=== PATIENT | male | born 1970 | race Caucasian/White ===

== ENCOUNTER → 2016-09-29 | Outpatient (CLI) | payer BC ==
--- NOTE | 2016-09-29 16:49 | REP ---
ULTRASOUND LEFT POPLITEAL FOSSA: Real-time sonographic evaluation of the left popliteal fossa performed. There is complex fluid in this region measuring 7.8 x 3.2 x 5.2 cm. IMPRESSION: Complex fluid collection left popliteal fossa of indeterminate etiology. It measures 7.8 x 3.2 x 5.2 cm. Signed by Vu Reyez MD 09/30/2016 09:42 A
== END ==
LOC: M RAD 15:33
PROVIDERS: ATTEND Physician Assistant
DX: M25.562 Pain in left knee (principal)

== ENCOUNTER → 2016-09-29 | Outpatient (CLI) | payer BC ==
--- NOTE | 2016-09-29 18:19 | REP ---
LEFT KNEE SERIES: Six views of the left knee are performed. There is no acute fracture or dislocation. There is mild joint space narrowing. There appears to be a ligamentous calcification along the medial femoral condyle. Oval subcutaneous soft-tissue calcification is seen far posteriorly. There does appear to be a moderate joint effusion in the suprapatellar bursa. IMPRESSION: Mild degenerative changes. Moderate joint effusion. Signed by Vu Reyez MD 09/30/2016 09:41 A
== END ==
LOC: M ADAMS 16:29
PROVIDERS: ATTEND Physician Assistant
DX: M25.562 Pain in left knee (principal)

== ENCOUNTER → 2016-09-30 | Outpatient (CLI) | payer BC ==
[2016-09-30 20:09] LABS: RBC ADVIA BF 0.03; RBC CALC. BF 30000 (< 10mm3 cells/uL); WBC ADVIA BF 59.1; WBC CALC. BF 59100 cells/uL (0-20)
[2016-09-30 20:14] LABS: BF DIFF IF INDICATED? YES (NO); SYNOVIAL FLUID COLOR YELLOW (YELLOW)
[2016-09-30 21:14] LABS: CC BF DIFF EXAM UNSPUN; CRYSTALS, BODY FLUID URIC ACID (NONE SEEN)
[2016-09-30 21:51] LABS: HCT SOURCE LFT KNEE
[2016-10-02 00:08] LABS: Lyme Disease IgG/IgM Antibodie <0.91 ISR (0.00-0.90); Lyme Disease IgM Ab Quantitati <0.80 index (0.00-0.79)
== END ==
LOC: M LAB 12:13
PROVIDERS: ATTEND Orthopaedic Surgery
DX: M25.462 Effusion, left knee (principal); M17.12 Unilateral primary osteoarthritis, left knee

== ENCOUNTER → 2016-10-25 | Outpatient (REF) | payer BC ==
[2016-10-25 16:49] LABS: MEAN CORPUSCULAR HEMOGLOBIN 34.9 pg (27.0-33.0); MEAN CORPUSCULAR HGB CONC 35.2 g/dl (32.0-36.5); MEAN CORPUSCULAR VOLUME 99.3 fl (80.0-96.0); RED CELL DISTRIBUTION WIDTH 13.9 % (11.5-14.5); WHITE BLOOD COUNT 5.3 K/mm3 (4.0-10.0)
[2016-10-25 16:50] LABS: ALBUMIN 4.1 GM/DL (3.2-5.2); ALBUMIN/GLOBULIN RATIO 1.05 (1.00-1.93); ALKALINE PHOSPHATASE 103 U/L (45-117); ALT/SGPT 36 U/L (12-78); ANION GAP 12 MEQ/L (8-16); AST/SGOT 50 U/L (15-37); BILIRUBIN,TOTAL 0.7 MG/DL (0.2-1.0); BLOOD UREA NITROGEN 7 MG/DL (7-18); CALCIUM LEVEL 9.1 MG/DL (8.5-10.1); CARBON DIOXIDE LEVEL 29 MEQ/L (21-32); CHLORIDE LEVEL 99 MEQ/L (98-107); CHOLESTEROL LEVEL 337 MG/DL (<200); CREATININE FOR GFR 1.07 MG/DL (0.70-1.30); FREE T4 0.65 NG/DL (0.76-1.46); GLOMERULAR FILTRATION RATE > 60.0 (>60); GLUCOSE, FASTING 105 MG/DL (70-105); POTASSIUM SERUM 3.9 MEQ/L (3.5-5.1); SODIUM LEVEL 140 MEQ/L (136-145); TRIGLYCERIDES LEVEL 901 MG/DL (<150)
== END ==
LOC: M SFHCADAM 10:40
PROVIDERS: ATTEND Physician Assistant
DX: E03.9 Hypothyroidism, unspecified (principal); E78.5 Hyperlipidemia, unspecified; I10 Essential (primary) hypertension

== ENCOUNTER 2016-11-23 09:58 | Emergency (ER) | payer BC ==
[~2016-11-23] VITALS: Ht 180.3 cm; Wt 111.1 kg
[2016-11-23] MEDS ORDERED: ALBU17IN2 INH (10:11)
[2016-11-23] MEDS ORDERED: ALLO100T PO (10:11)
[2016-11-23] MEDS ORDERED: SYNT150T PO (10:11)
[2016-11-23] MEDS ORDERED: AMLO5TAB2 PO (10:11)
[2016-11-23] MEDS ORDERED: NORCO, ANEXSIA 5/325MG TABLET (HYDROcodone/ACETAMINOPHEN) PO ONE (10:30)
[2016-11-23] MEDS ORDERED: KETOROLAC 60 MG/2 ML VIAL (J1885) IM ONE (10:30)
[2016-11-23] MEDS ORDERED: ONDANSETRON 4 MG ORAL DISINTEGRATING TAB (S0181) PO ONE (10:30)
[2016-11-23 10:32] LABS: BASO # 0.1 K/mm3 (0.0-0.2); BASO % 0.9 % (0.0-1.0); EOS # 0.4 K/mm3 (0.0-0.50); EOS % 3.8 % (0.0-3.0); LARGE UNSTAINED CELL # 0.1 K/mm3 (0.0-0.4); LARGE UNSTAINED CELL % 1.4 % (0.0-4.0); LYMPH # 1.5 K/mm3 (1.5-4.5); LYMPH % 15.4 % (24.0-44.0); MEAN CORPUSCULAR HEMOGLOBIN 33.6 pg (27.0-33.0); MEAN CORPUSCULAR HGB CONC 33.8 g/dl (32.0-36.5); MEAN CORPUSCULAR VOLUME 99.2 fl (80.0-96.0); MONO # 0.4 K/mm3 (0.0-0.8); MONO % 4.5 % (0.0-5.0); NEUTROPHILS # 7.1 K/mm3 (1.8-7.7); NEUTROPHILS % 74.1 % (36.0-66.0); PLATELET COUNT, AUTOMATED 299 k/mm3 (150-450); RED CELL DISTRIBUTION WIDTH 13.7 % (11.5-14.5); WHITE BLOOD COUNT 9.6 K/mm3 (4.0-10.0)
[2016-11-23 10:50] LABS: ANION GAP 7 MEQ/L (8-16); BLOOD UREA NITROGEN 7 MG/DL (7-18); CARBON DIOXIDE LEVEL 29 MEQ/L (21-32); CHLORIDE LEVEL 102 MEQ/L (98-107); CREATININE FOR GFR 0.72 MG/DL (0.70-1.30); GLOMERULAR FILTRATION RATE > 60.0 (>60); GLUCOSE, FASTING 119 MG/DL (70-105); POTASSIUM SERUM 3.7 MEQ/L (3.5-5.1); SODIUM LEVEL 138 MEQ/L (136-145); URIC ACID 5.7 MG/DL (3.5-7.2)
[2016-11-23 11:00] LABS: ERYTHROCYTE SEDIMENTATION RATE 8 mm/hr (0-15)
[2016-11-23 11:15] VITALS: BP 138/78
--- NOTE | 2016-11-23 11:15 | REP ---
Clinical: Posterior knee pain . Technique: Reyez scale and color Doppler evaluation using linear high frequency transducer. Findings: Ultrasound examination of the left lower extremity deep venous structures from the common femoral vein to the popliteal vein demonstrates normal compressibility flow and wave patterns in response to respiration and augmentation. There is no evidence for deep venous thrombosis. A complex Villanueva's cyst with heterogeneous fluid, septations and calcifications in the popliteal fossa measures 8.7 x 2.8 x 4.9 cm. Impression: No evidence for deep venous thrombosis. Large complex Villanueva's cyst in the popliteal fossa. Signed by Dylan Lujan MD 11/23/2016 11:06 A
--- NOTE | 2016-11-23 11:23 | REP ---
Clinical: Nontraumatic pain. Technique: AP, lateral, bilateral oblique and sunrise views of the left knee. Findings: Moderate tricompartmental and possibly old post traumatic degenerative changes are appreciated including old avulsion fracture and subsequent calcification along the medial collateral ligament adjacent to the femoral condyle. Increased sclerosis to the tibial plateau is noted with subtle spurring to the spines as well as cortical irregularity to the femoral condyles, spurring along the patellar margin with associated posterior sclerosis and decreased patellofemoral joint space. There is evidence for anterior and medial soft tissue swelling as well as moderate suprapatellar effusion suggested. Impression: 1. Moderate tricompartmental degenerative changes possibly to some extent related to old trauma. 2. Swelling and suprapatellar effusion. Signed by Dylan Lujan MD 11/23/2016 11:15 A
--- NOTE | 2016-11-23 11:25 | REP ---
Clinical: Pain . Technique: AP, lateral, bilateral oblique views right foot. Findings: Mild degenerative changes primarily involving the first metatarsophalangeal joint with subtle sclerosis and possible subchondral cystic changes to the head of the first metatarsal bone and subchondral sclerosis and at the base of the proximal phalanx. Remainder examination appears relatively normal for age and without further degenerative changes noted. There is no evidence for acute fracture or dislocation. Surrounding soft tissues are unremarkable. No subcutaneous emphysema or radiodense foreign body. Impression: Mild degenerative changes suggested at the first metatarsophalangeal joint. Signed by Dylan Lujan MD 11/23/2016 11:17 A
[2016-11-23] MEDS ORDERED: NORCOTAB PO (11:36)
[2016-11-23] MEDS ORDERED: INDO25CA PO (11:36)
== END 2016-11-23 11:42 | disposition home or self-care (01) ==
LOC: M ED 10:31
DX: M79.671 Pain in right foot (principal); M71.22 Synovial cyst of popliteal space [Baker], left knee; I10 Essential (primary) hypertension; J45.909 Unspecified asthma, uncomplicated; M10.9 Gout, unspecified; E07.9 Disorder of thyroid, unspecified; Z79.899 Other long term (current) drug therapy; Z88.0 Allergy status to penicillin
CPT/HCPCS: 73564; 73630; 80048; 84550; 85025; 85652; 86140; 93971; 96372; 99282; J1885

== ENCOUNTER → 2016-12-29 | Outpatient (REF) | payer BC ==
[~2016-12-29] MED LIST: ALBU17IN2 INH; ALLO100T PO; AMLO5TAB2 PO; INDO25CA PO; NORCOTAB PO; SYNT150T PO
[2016-12-29 13:23] LABS: FREE T4 1.53 NG/DL (0.76-1.46); URIC ACID 7.3 MG/DL (3.5-7.2)
== END ==
LOC: M SFHCADAM 10:03
PROVIDERS: ATTEND Physician Assistant
DX: E03.9 Hypothyroidism, unspecified (principal); M10.9 Gout, unspecified

== ENCOUNTER → 2017-04-04 | Outpatient (REF) | payer BC ==
[2017-04-04 17:22] LABS: ALBUMIN 4.1 GM/DL (3.2-5.2); ALBUMIN/GLOBULIN RATIO 1.08 (1.00-1.93); ALKALINE PHOSPHATASE 78 U/L (45-117); ALT/SGPT 72 U/L (12-78); ANION GAP 9 MEQ/L (8-16); AST/SGOT 74 U/L (15-37); BILIRUBIN,TOTAL 0.5 MG/DL (0.2-1.0); BLOOD UREA NITROGEN 7 MG/DL (7-18); CALCIUM LEVEL 8.7 MG/DL (8.5-10.1); CARBON DIOXIDE LEVEL 28 MEQ/L (21-32); CHLORIDE LEVEL 103 MEQ/L (98-107); CREATININE FOR GFR 0.81 MG/DL (0.70-1.30); FREE T4 0.82 NG/DL (0.76-1.46); GLOMERULAR FILTRATION RATE > 60.0 (>60); GLUCOSE, FASTING 90 MG/DL (70-105); POTASSIUM SERUM 3.7 MEQ/L (3.5-5.1); SODIUM LEVEL 140 MEQ/L (136-145); TOTAL PROTEIN 7.9 GM/DL (6.4-8.2); URIC ACID 5.3 MG/DL (3.5-7.2)
[2017-04-06 10:16] LABS: VITAMIN B12 LEVEL 562 PG/ML
[2017-04-06 10:17] LABS: FOLATE 10.2 NG/ML
== END ==
LOC: M SFHCADAM 10:40
PROVIDERS: ATTEND Physician Assistant
DX: M10.9 Gout, unspecified (principal); I10 Essential (primary) hypertension; F10.10 Alcohol abuse, uncomplicated

== ENCOUNTER → 2017-07-25 | Outpatient (REF) | payer BC ==
[2017-07-25 16:59] LABS: FREE T4 0.69 NG/DL (0.76-1.46)
[2017-07-27 10:33] LABS: HEPATITIS C VIRUS ABY INDEX < 0.0 INDEX (<0.8)
[2017-07-27 10:33] LABS: HIV 1&2 SCREEN CENTAUR NEGATIVE (NEGATIVE)
== END ==
LOC: M SFHCADAM 10:19
DX: E03.9 Hypothyroidism, unspecified (principal); Z11.59 Encounter for screening for other viral diseases; Z11.4 Encounter for screening for human immunodeficiency virus [HIV]

== ENCOUNTER → 2017-09-03 | Outpatient (CLI) | payer OTHER | LOC: M WHC 09:45 | DX: N50.89 Other specified disorders of the male genital organs (principal) | CPT/HCPCS: 76870 ==

== ENCOUNTER → 2017-11-09 | Outpatient (REF) | payer OTHER ==
[2017-11-09 19:18] LABS: HEMATOCRIT 42.7 % (42.0-52.0); HEMOGLOBIN 14.7 g/dl (13.5-17.5); MEAN CORPUSCULAR HGB CONC 34.4 g/dl (32.0-36.5); MEAN CORPUSCULAR VOLUME 95.7 fl (80.0-96.0); PLATELET COUNT, AUTOMATED 273 10^3/uL (150-450); RED BLOOD COUNT 4.46 10^6/uL (4.30-6.10); RED CELL DISTRIBUTION WIDTH 12.1 % (11.5-14.5); WHITE BLOOD COUNT 9.1 10^3/uL (4.0-10.0)
[2017-11-09 19:36] LABS: FOLATE 7.6 NG/ML; VITAMIN B12 LEVEL 521 PG/ML
[2017-11-09 19:37] LABS: ALBUMIN/GLOBULIN RATIO 1.11 (1.00-1.93); ALKALINE PHOSPHATASE 74 U/L (45-117); ALT/SGPT 58 U/L (12-78); ANION GAP 10 MEQ/L (8-16); AST/SGOT 40 U/L (7-37); BILIRUBIN,TOTAL 0.4 MG/DL (0.2-1.0); BLOOD UREA NITROGEN 15 MG/DL (7-18); CALCIUM LEVEL 8.7 MG/DL (8.5-10.1); CARBON DIOXIDE LEVEL 24 MEQ/L (21-32); CHLORIDE LEVEL 106 MEQ/L (98-107); CREATININE FOR GFR 0.89 MG/DL (0.70-1.30); FREE T4 0.95 NG/DL (0.76-1.46); GLOMERULAR FILTRATION RATE > 60.0 (>60); GLUCOSE, FASTING 96 MG/DL (70-100); POTASSIUM SERUM 4.4 MEQ/L (3.5-5.1); SODIUM LEVEL 140 MEQ/L (136-145); TOTAL PROTEIN 7.6 GM/DL (6.4-8.2)
[2017-11-10 11:17] LABS: TOTAL 25(OH) VITAMIN D 10.8 NG/ML (30.0-100.0)
== END ==
LOC: M SFHCADAM 13:08
DX: E03.9 Hypothyroidism, unspecified (principal); F10.10 Alcohol abuse, uncomplicated; I10 Essential (primary) hypertension; F33.1 Major depressive disorder, recurrent, moderate
CPT/HCPCS: 82746

== ENCOUNTER → 2017-11-12 | Outpatient (CLI) | payer OTHER | LOC: M ADAMS 13:59 | DX: M16.11 Unilateral primary osteoarthritis, right hip (principal) | CPT/HCPCS: 73502 ==

== ENCOUNTER → 2019-02-04 | Outpatient (CLI) | payer OTHER ==
[~2019-02-04] MED LIST changes: -AMLO5TAB2 PO; +AMLO5TAB6 PO; +HYDR-3715 PO; +INDO-16 PO; -INDO25CA PO; -NORCOTAB PO
== END ==
LOC: M OUTALCOH 08:28
PROVIDERS: ATTEND Psychiatry & Neurology Psychiatry
DX: F12.10 Cannabis abuse, uncomplicated (principal)

== ENCOUNTER 2019-02-24 10:00 | Outpatient (RCR) | payer OTHER | END 2019-02-26 | LOC: M OUTALCOH 10:00 | PROVIDERS: ATTEND Psychiatry & Neurology Psychiatry | DX: Z03.89 Encounter for observation for other suspected diseases and conditions ruled out (principal) ==

== ENCOUNTER → 2019-03-21 | Outpatient (CLI) | payer OTHER | LOC: M LAB 08:39 | PROVIDERS: ATTEND Psychiatry & Neurology Addiction Medicine | DX: F10.929 Alcohol use, unspecified with intoxication, unspecified (principal) ==

== ENCOUNTER → 2019-03-28 | Outpatient (RCR) | payer OTHER | LOC: M OUTALCOH 03-03 14:17 | PROVIDERS: ATTEND Psychiatry & Neurology Psychiatry | DX: F10.10 Alcohol abuse, uncomplicated (principal); F12.10 Cannabis abuse, uncomplicated ==

== ENCOUNTER 2019-04-22 09:30 | Outpatient (RCR) | payer OTHER | END 2019-04-28 | LOC: M OUTALCOH 09:30 | PROVIDERS: ATTEND Psychiatry & Neurology Psychiatry | DX: F10.10 Alcohol abuse, uncomplicated (principal); F12.10 Cannabis abuse, uncomplicated ==

== ENCOUNTER 2019-05-17 08:00 | Outpatient (RCR) | payer OTHER | END 2019-05-28 | LOC: M OUTALCOH 08:00 | PROVIDERS: ATTEND Psychiatry & Neurology Psychiatry | DX: F10.20 Alcohol dependence, uncomplicated (principal); F12.10 Cannabis abuse, uncomplicated ==

== ENCOUNTER → 2019-12-02 | Outpatient (REF) | payer OTHER ==
[2019-12-02 17:30] LABS: HEMATOCRIT 43.6 % (42.0-52.0); HEMOGLOBIN 15.5 g/dl (13.5-17.5); MEAN CORPUSCULAR HGB CONC 35.6 g/dl (32.0-36.5); MEAN CORPUSCULAR VOLUME 87.2 fl (80.0-96.0); PLATELET COUNT, AUTOMATED 184 10^3/uL (150-450); WHITE BLOOD COUNT 5.2 10^3/uL (4.0-10.0)
[2019-12-02 18:48] LABS: ALBUMIN 4.4 GM/DL (3.2-5.2); ALT/SGPT 26 U/L (12-78); BILIRUBIN,TOTAL 0.8 MG/DL (0.2-1.0); BLOOD UREA NITROGEN 14 MG/DL (7-18); CALCIUM LEVEL 9.6 MG/DL (8.5-10.1); CARBON DIOXIDE LEVEL 30 MEQ/L (21-32); CHLORIDE LEVEL 98 MEQ/L (98-107); CHOLESTEROL LEVEL 338 MG/DL (<200); CHOLESTEROL RISK RATIO 8.243 (<5); CREATININE FOR GFR 1.11 MG/DL (0.70-1.30); FOLATE > 24.0 NG/ML; FREE T4 0.94 NG/DL (0.76-1.46); GLOMERULAR FILTRATION RATE > 60.0 (>60); GLUCOSE, FASTING 93 MG/DL (70-100); HDL CHOLESTEROL 41 MG/DL (>40); NON-HDL-C 297 MG/DL; POTASSIUM SERUM 4.3 MEQ/L (3.5-5.1); SODIUM LEVEL 136 MEQ/L (136-145); TOTAL 25(OH) VITAMIN D 36.8 NG/ML (30.0-100.0); TOTAL PROTEIN 8.1 GM/DL (6.4-8.2); TRIGLYCERIDES LEVEL 1172 MG/DL (<150); VITAMIN B12 LEVEL 1065 PG/ML
[2019-12-02 18:53] LABS: MALB URINE SIEMENS 49.2 MG/L; MAU/CREAT RATIO 16.6 MCG/MG (0.0-30.0)
== END ==
LOC: M SFHCADAM 11:31
PROVIDERS: ATTEND Physician Assistant
DX: E03.9 Hypothyroidism, unspecified (principal); E78.5 Hyperlipidemia, unspecified; I10 Essential (primary) hypertension; F10.10 Alcohol abuse, uncomplicated; M16.11 Unilateral primary osteoarthritis, right hip; J45.909 Unspecified asthma, uncomplicated

== ENCOUNTER → 2020-01-02 | Outpatient (CLI) | payer OTHER ==
--- NOTE | 2020-01-03 08:19 | REP ---
SCROTAL ULTRASOUND: Real-time sonographic evaluation of the scrotum and contents performed and compared to a prior study of 09/03/2017. The testicles appear to be normal in size and echotexture, right testicle measuring 4.4 x 2.4 x 3.3 cm and left testicle 5.5 x 2.4 x 2.1 cm. There is no testicular mass or torsion. Blood flow is seen in each testicle with duplex Doppler evaluation. There is a small right-sided hydrocele. This appears similar to the prior study. There is a very large left hydrocele. This appears to have increased somewhat since the prior study. IMPRESSION: No testicular mass or torsion. No definite change. Small right hydrocele. Very large left hydrocele appears to have increased since 09/03/2017. Electronically Signed by Vu Reyez MD 01/03/2020 07:30 P
== END ==
LOC: M RAD 14:27
PROVIDERS: ATTEND Nurse Practitioner Family
DX: N43.3 Hydrocele, unspecified (principal)

== ENCOUNTER → 2020-02-04 | Outpatient (CLI) | payer OTHER ==
[~2020-02-04] MED LIST changes: +AMLO1TAB24 PO; -AMLO5TAB6 PO
--- NOTE | 2020-04-03 08:00 | REP ---
CHEST X-RAY: 2-VIEWS HISTORY: History of hydrocele. Preop. FINDINGS: 2-views of the chest are performed. I see no acute infiltrate. The heart is normal in size. The mediastinal silhouette is unremarkable. There is slight curvature of the thoracic spine toward the right and straightening of the normal thoracic kyphosis. IMPRESSION: No acute pulmonary disease. MTDD
== END ==
LOC: M LAB 13:30
PROVIDERS: ATTEND Nurse Practitioner Family
DX: Z01.818 Encounter for other preprocedural examination (principal); N43.3 Hydrocele, unspecified

== ENCOUNTER 2020-02-10 09:45 | Day surgery (SDC) | payer OTHER ==
[~2020-02-10 09:45] MED LIST changes: +LIDOCAINE 2% 100MG/5ML SDV (FOR ANES.) ONE; +MIDAZOLAM INJ 2MG/2ML VIAL (J2250 PER 1MG) ONE; +ONDANSETRON 4MG/2ML VIAL ONE; +dexameTHASONE 4 MG/ML 1ML VIAL (J1100 PER 1MG) ONE; +fentaNYL 100 MCG/2 ML INJECTION (J3010) ONE; +propofoL 200 MG/20 ML VIAL ONE
[2020-02-10] MEDS ORDERED: CIPROFLOXACIN/D5W 400 MG/200 ML BAG (J0744) ONE (10:05)
[2020-02-10] MEDS ORDERED: BUPIVACAINE HCL 0.25% 30ML VIAL ONE (10:38)
[2020-02-10] MEDS ORDERED: LIDOCAINE 1% SDV 30ML VIAL ONE (10:38)
[2020-02-10] MEDS ORDERED: fentaNYL 100 MCG/2 ML INJECTION (J3010) ONE (10:55)
[2020-02-10] MEDS ORDERED: BACITRACIN OINTMENT 30GM TUBE ONE (11:04)
[2020-02-10] MEDS ORDERED: ACETAMINOPHEN 1000MG 100ML IV BTL (OFIRMEV) (J0131 PER 10MG) ONE (12:34)
[2020-02-10] MEDS ORDERED: oxyCODONE 5MG TAB ONE ×2 (12:34→13:09)
[2020-02-10] MEDS ORDERED: ONDANSETRON 4MG/2ML VIAL ONE (12:50)
--- NOTE | 2020-04-05 11:36 | RO ---
DATE OF PROCEDURE: February 10, 2020 PRE-PROCEDURE DIAGNOSIS: Left hydrocele. POST-PROCEDURE DIAGNOSIS: Left hydrocele. PROCEDURE: Left hydrocelectomy. SURGEON: Castillo Yuan MD REAL ESTATE LEGAL ASSISTANT: None. ANESTHESIA: General. OPERATIVE INDICATIONS: This is 49-year-old male who has a large symptomatic left hydrocele. He was brought to the operating room today for treatment. DESCRIPTION OF PROCEDURE: The patient was brought to the operating room and general anesthesia was induced. Prophylactic antibiotics were infused. He was placed in the supine position and prepped and draped in the usual sterile fashion. At this point, an approximately 6-7 cm transverse incision was made over the left hemiscrotum. We then dissected down through the scrotal wall layers using Bovie electrocautery. The testicle was then delivered outside of the left hemiscrotum inside the tunica vaginalis. At this point, the tunica vaginalis was punctured and approximately 1 liter of yellow serous fluid was drained from the left hydrocele sac. The tunica vaginalis was completely excised. I then oversewed the edges of the tunica vaginalis using a running 3-0 Vicryl suture. After this was done, I examined the testicle and the testicle appeared to be normal-appearing. We then checked for any areas of bleeding in the left hemiscrotum and any bleeding was controlled using electrocautery. Once satisfied with hemostasis, the testicle was delivered back inside the left hemiscrotum in its normal anatomic position. After that, the dartos muscle was closed with a running 2-0 Vicryl suture. After that, the skin was closed with interrupted 2-0 chromic suture. Once that was done, local anesthetic was applied, followed by dressings. This marked the conclusion of the procedure. The patient was then awakened from anesthesia and transferred to the recovery room in stable condition. ESTIMATED BLOOD LOSS: 10 mL. COMPLICATIONS: None. SPECIMENS: Left hydrocele sac. PLAN: The patient will follow up in the Urology Clinic for a postoperative visit in a few weeks. KRISTI
== END 2020-02-10 14:21 | disposition home or self-care (01) ==
LOC: M SDC 09:45
PROVIDERS: ATTEND Urology
DX: N43.3 Hydrocele, unspecified (principal); I10 Essential (primary) hypertension; E78.1 Pure hyperglyceridemia; M10.9 Gout, unspecified; F32.9 Major depressive disorder, single episode, unspecified; E03.9 Hypothyroidism, unspecified; J45.909 Unspecified asthma, uncomplicated; G47.33 Obstructive sleep apnea (adult) (pediatric); Z79.899 Other long term (current) drug therapy; F10.10 Alcohol abuse, uncomplicated
CPT/HCPCS: 55040; 88302; J0131; J0744; J1100; J2250; J2405; J3010

== ENCOUNTER → 2020-03-19 | Outpatient (REF) | payer OTHER ==
[~2020-03-19] MED LIST changes: -LIDOCAINE 2% 100MG/5ML SDV (FOR ANES.) ONE; -MIDAZOLAM INJ 2MG/2ML VIAL (J2250 PER 1MG) ONE; -ONDANSETRON 4MG/2ML VIAL ONE; -dexameTHASONE 4 MG/ML 1ML VIAL (J1100 PER 1MG) ONE; -fentaNYL 100 MCG/2 ML INJECTION (J3010) ONE; -propofoL 200 MG/20 ML VIAL ONE
[2020-03-19 14:25] LABS: APPEARANCE, URINE CLEAR (CLEAR); BACTERIA, URINE AUTO NEGATIVE (NEGATIVE); BILIRUBIN, URINE AUTO NEGATIVE (NEGATIVE); BLOOD, URINE BLOOD NEGATIVE (NEGATIVE); COLOR, URINE YELLOW (YELLOW); GLUCOSE, URINE (UA) AUTO NEGATIVE (NEGATIVE); KETONE, URINE AUTO NEGATIVE (NEGATIVE); LEUKOCYTE ESTERASE, URINE AUTO NEGATIVE (NEGATIVE); MUCUS, URINE SMALL (NEGATIVE); NITRITE, URINE AUTO NEGATIVE (NEGATIVE); PROTEIN, URINE AUTO NEGATIVE (NEGATIVE); RBC, URINE AUTO 0 /HPF (0-3); SQUAMOUS EPITHELIAL CELL UR AU 0 /HPF (0-6); UROBILINOGEN, URINE AUTO 0.2 mg/dL (0.0-2.0); WBC, URINE AUTO 0 /HPF (0-3)
== END ==
LOC: M SMT 12:53
PROVIDERS: ATTEND Nurse Practitioner Family
DX: N50.819 Testicular pain, unspecified (principal)

== ENCOUNTER → 2020-04-30 | Outpatient (CLI) | payer OTHER ==
--- NOTE | 2020-05-02 10:15 | SLEEPHOME ---
DATE: 04/30/2020 ORDERED BY: Vicenta Mcclelland NP Diagnostic home sleep testing was performed due to concern for the obstructive sleep apnea syndrome. For testing, a nocturnal T3 respiratory monitoring device was used. Continuous record was made of pulse, oxygen saturation, air flow, chest and abdominal strain, and body position. Nine hours and 33 minutes of data were reviewed. There were 5 hours and 58 minutes marked as time in bed. During the interval marked time in bed, there were 268 respiratory events identified of 10 seconds in duration or greater for a respiratory event index of 44.9. The events were primarily obstructive. Baseline pulse rate was 75. Pulse rate ranged 31 to 194. Baseline saturation was 98%. Saturations fell to 75%. Testing was performed in both the supine and nonsupine positions. IMPRESSION: Abnormal home sleep testing with repetitive respiratory events and oxygen desaturations to 75% with a respiratory event index of 44.9 is consistent with the obstructive sleep apnea syndrome. RECOMMENDATION: The patient should be encouraged to undergo a formal sleep evaluation. [facility]
== END ==
LOC: M SLEEP HO 11:35
PROVIDERS: ATTEND Nurse Practitioner Family
DX: G47.33 Obstructive sleep apnea (adult) (pediatric) (principal)

== ENCOUNTER → 2020-05-17 | Outpatient (REF) | payer OTHER ==
[2020-05-17 14:03] LABS: ALBUMIN 4.1 GM/DL (3.2-5.2); ALT/SGPT 31 U/L (12-78); BILIRUBIN,TOTAL 0.5 MG/DL (0.2-1.0); BLOOD UREA NITROGEN 16 MG/DL (7-18); CALCIUM LEVEL 9.2 MG/DL (8.5-10.1); CARBON DIOXIDE LEVEL 30 MEQ/L (21-32); CHLORIDE LEVEL 100 MEQ/L (98-107); CHOLESTEROL LEVEL 317 MG/DL (<200); CREATININE FOR GFR 1.08 MG/DL (0.70-1.30); FREE T4 0.22 NG/DL (0.76-1.46); GLOMERULAR FILTRATION RATE > 60.0 (>60); GLUCOSE, FASTING 85 MG/DL (70-100); HDL CHOLESTEROL 50 MG/DL (>40); NON-HDL-C 267 MG/DL; POTASSIUM SERUM 4.6 MEQ/L (3.5-5.1); SODIUM LEVEL 137 MEQ/L (136-145); TOTAL PROTEIN 7.9 GM/DL (6.4-8.2); TRIGLYCERIDES LEVEL 1176 MG/DL (<150)
== END ==
LOC: M SFHCADAM 09:00
PROVIDERS: ATTEND Physician Assistant
DX: E78.2 Mixed hyperlipidemia (principal); E03.9 Hypothyroidism, unspecified

== ENCOUNTER → 2020-06-05 | Outpatient (CLI) | payer SELFPAY | LOC: M LABSMTC 14:13 | PROVIDERS: ATTEND Pediatrics | DX: Z11.59 Encounter for screening for other viral diseases (principal) ==

== ENCOUNTER → 2020-07-09 | Outpatient (REF) | payer OTHER ==
[2020-07-09 13:48] LABS: CHOLESTEROL LEVEL 240 MG/DL (<200); FREE T4 1.29 NG/DL (0.76-1.46); HDL CHOLESTEROL 60 MG/DL (>40); NON-HDL-C 180 MG/DL; TRIGLYCERIDES LEVEL 507 MG/DL (<150)
== END ==
LOC: M SFHCADAM 09:38
PROVIDERS: ATTEND Physician Assistant
DX: E03.9 Hypothyroidism, unspecified (principal); E78.2 Mixed hyperlipidemia

== ENCOUNTER → 2020-10-08 | Outpatient (REF) | payer OTHER ==
[2020-10-08 14:10] LABS: BASO # 0.1 10^3/uL (0.0-0.2); EOS # 0.5 10^3/uL (0.0-0.5); HEMATOCRIT 43.9 % (42.0-52.0); HEMOGLOBIN 14.6 g/dl (13.5-17.5); LYMPH # 2.4 10^3/uL (1.5-5.0); MEAN CORPUSCULAR HEMOGLOBIN 30.9 pg (27.0-33.0); MEAN CORPUSCULAR HGB CONC 33.3 g/dl (32.0-36.5); MEAN CORPUSCULAR VOLUME 92.8 fl (80.0-96.0); MONO # 0.7 10^3/uL (0.0-0.8); MONO % 7.8 % (2.0-8.0); NEUTROPHILS # 5.1 10^3/uL (1.5-8.5); NEUTROPHILS % 57.5 % (36.0-66.0); PLATELET COUNT, AUTOMATED 301 10^3/uL (150-450); RED BLOOD COUNT 4.73 10^6/uL (4.30-6.10); WHITE BLOOD COUNT 8.9 10^3/uL (4.0-10.0)
[2020-10-08 14:41] LABS: ALBUMIN 4.2 GM/DL (3.2-5.2); PERCENT SATURATION 25.1 % (19.7-50.0)
== END ==
LOC: M LABDRWAD 12:48
PROVIDERS: ATTEND Orthopaedic Surgery
DX: Z01.818 Encounter for other preprocedural examination (principal); M25.559 Pain in unspecified hip; M16.11 Unilateral primary osteoarthritis, right hip

== ENCOUNTER → 2020-10-26 | Outpatient (REF) | payer OTHER ==
[2020-10-26 13:43] LABS: INR 1.05
[2020-10-26 13:44] LABS: PARTIAL THROMBOPLASTIN TIME 33.5 SECONDS (24.2-38.5)
[2020-10-26 14:11] LABS: ALBUMIN 4.2 GM/DL (3.2-5.2); ALT/SGPT 77 U/L (12-78); BILIRUBIN,TOTAL 0.6 MG/DL (0.2-1.0); BLOOD UREA NITROGEN 15 MG/DL (7-18); CALCIUM LEVEL 9.4 MG/DL (8.5-10.1); CARBON DIOXIDE LEVEL 27 MEQ/L (21-32); CHLORIDE LEVEL 102 MEQ/L (98-107); GLOMERULAR FILTRATION RATE > 60.0 (>56); GLUCOSE, FASTING 115 MG/DL (70-100); POTASSIUM SERUM 4.2 MEQ/L (3.5-5.1); SODIUM LEVEL 137 MEQ/L (136-145)
== END ==
LOC: M SFHCADAM 11:05
PROVIDERS: ATTEND Physician Assistant
DX: E78.2 Mixed hyperlipidemia (principal); E78.5 Hyperlipidemia, unspecified; F10.10 Alcohol abuse, uncomplicated; F10.11 Alcohol abuse, in remission

== ENCOUNTER → 2020-12-17 | Outpatient (REF) | payer OTHER ==
[~2020-12-17] MED LIST changes: +ALBU8.5H INH; +ATOR40TA75 PO; +ERGO500029 PO; +FLUT1INH3 INH; +LOSA25TA14 PO; +MELO15TA28 PO; +OMEG1CAP85 PO; +VITMTA PO; +ZYLO300T6 PO
[2020-12-17 13:23] LABS: CHOLESTEROL RISK RATIO 3.44 (<5); FREE T4 1.27 NG/DL (0.76-1.46); THYROID STIMULATING HORMONE 0.303 uIU/ML (0.358-3.740)
== END ==
LOC: M SFHCADAM 09:27
PROVIDERS: ATTEND Physician Assistant
DX: E78.2 Mixed hyperlipidemia (principal); E78.5 Hyperlipidemia, unspecified; F10.10 Alcohol abuse, uncomplicated; E03.9 Hypothyroidism, unspecified; Z12.5 Encounter for screening for malignant neoplasm of prostate

== ENCOUNTER → 2021-01-10 | Outpatient (CLI) | payer OTHER ==
--- NOTE | 2021-01-10 08:39 | REP ---
INDICATION: ELEVATED LIVER ENZYMES COMPARISON: 02/01/2013 TECHNIQUE: Real time jovel scale ultrasound examination using curved array transducer. FINDINGS: Liver is hyperechoic and consistent with fatty infiltration. No focal hepatic lesions are identified. Pancreas is relatively normal in appearance. The gallbladder is normal and without gallstones, wall thickening, or pericholecystic fluid. No biliary ductal dilatation is appreciated and the common bile duct measures 3.5 mm diameter. Right kidney is normal in reniform shape without hydronephrosis and measures 12.8 x 5.4 x 4.8 cm. No ascites in the visualized right upper quadrant. IMPRESSION: Hepatosteatosis. <Electronically signed by Dylan Lujan > 01/10/21 0800
== END ==
LOC: M RAD 07:50
PROVIDERS: ATTEND Physician Assistant
DX: R74.01 Elevation of levels of liver transaminase levels (principal)

== ENCOUNTER → 2021-01-12 | Outpatient (CLI) | payer OTHER | LOC: M LABSMTC 09:05 | PROVIDERS: ATTEND Anesthesiology | DX: Z20.828 Contact with and (suspected) exposure to other viral communicable diseases (principal); Z11.59 Encounter for screening for other viral diseases ==

== ENCOUNTER 2021-01-17 09:25 | Day surgery (SDC) | payer OTHER ==
[~2021-01-17] VITALS: Ht 177.8 cm; Wt 111.5 kg
[2021-01-17] MEDS ORDERED: NS 1,000 ML IV ONE (10:25)
[2021-01-17] MEDS ORDERED: LIDOCAINE 2% 100MG/5ML SDV (FOR ANES.) As Ordered ONE (10:42)
[2021-01-17] MEDS ORDERED: propofoL 200 MG/20 ML VIAL As Ordered ONE ×2 (10:42→11:06)
[2021-01-17] MEDS ORDERED: fentaNYL 100 MCG/2 ML INJECTION (J3010) As Ordered ONE (11:03)
--- NOTE | 2021-01-17 11:18 | ROOR ---
Patient Name: Jn Almazan Procedure Date: 01/17/2021 10:55 AM Date of : 1970 Age: 50 Room: [facility] [place] Gender: Male Note Status: Finalized Procedure: Colonoscopy Indications: Screening for colorectal malignant neoplasm Providers: Yoav Wolff MD Referring MD: Mauricio Brizuela MD Requesting Provider: Medicines: Monitored Anesthesia Care Complications: No immediate complications. Procedure: Pre-Anesthesia Assessment: - The heart rate, respiratory rate, oxygen saturations, blood pressure, adequacy of pulmonary ventilation, and response to care were monitored throughout the procedure. The Colonoscope was introduced through the anus and advanced to the terminal ileum, with identification of the appendiceal orifice and IC valve. The colonoscopy was performed without difficulty. The patient tolerated the procedure well. The quality of the bowel preparation was adequate. Findings: The perianal and digital rectal examinations were normal. Two sessile polyps were found in the sigmoid colon. The polyps were 4 to 5 mm in size. These polyps were removed with a cold snare. Resection and retrieval were complete. A few medium-mouthed diverticula were found in the sigmoid colon. Internal hemorrhoids were found during retroflexion. The hemorrhoids were medium-sized. The exam was otherwise without abnormality on direct and retroflexion views. Impression: - Two 4 to 5 mm polyps in the sigmoid colon, removed with a cold snare. Resected and retrieved. - Mild diverticulosis in the sigmoid colon. - Moderate Internal hemorrhoids. - The examination was otherwise normal on direct and retroflexion views. Recommendation: - Repeat colonoscopy in 5 years for surveillance. Procedure Code(s): --- Professional --- 73137, Colonoscopy, flexible; with removal of tumor(s), polyp(s), or other lesion(s) by snare technique Diagnosis Code(s): --- Professional --- Z12.11, Encounter for screening for malignant neoplasm of colon K63.5, Polyp of colon K64.8, Other hemorrhoids K57.30, Diverticulosis of large intestine without perforation or abscess without bleeding CPT copyright 2019 [employer]. All rights reserved. The codes documented in this report are preliminary and upon vibration technician review may be revised to meet current compliance requirements. Yoav Wolff MD Yoav Wolff MD 01/17/2021 11:18:25 AM Electronically signed by Yoav Wolff MD Number of Addenda: 0 Note Initiated On: 01/17/2021 10:55 AM Estimated Blood Loss: Estimated blood loss: none.
[2021-01-17 11:51] VITALS: BP 135/77
== END 2021-01-17 11:53 | disposition home or self-care (01) ==
LOC: M OPP 09:25
PROVIDERS: ATTEND Internal Medicine Gastroenterology
DX: Z12.11 Encounter for screening for malignant neoplasm of colon (principal); Z80.0 Family history of malignant neoplasm of digestive organs; K63.5 Polyp of colon; K64.8 Other hemorrhoids; K57.30 Diverticulosis of large intestine without perforation or abscess without bleeding; G47.30 Sleep apnea, unspecified; Z79.899 Other long term (current) drug therapy; Z88.0 Allergy status to penicillin; Z91.018 Allergy to other foods; Z87.891 Personal history of nicotine dependence
CPT/HCPCS: 45385; 88305; J3010

== ENCOUNTER → 2021-07-24 | Outpatient (REF) | payer OTHER ==
[~2021-07-24] MED LIST changes: +LOSA25TA13 PO; -LOSA25TA14 PO
[2021-07-24 15:06] LABS: ALBUMIN 4.2 GM/DL (3.2-5.2); BILIRUBIN,TOTAL 2.3 MG/DL (0.2-1.0); CALCIUM LEVEL 9.3 MG/DL (8.5-10.1); CREATININE FOR GFR 1.37 MG/DL (0.70-1.30); FREE T4 0.65 NG/DL (0.76-1.46); GLOMERULAR FILTRATION RATE 58.3 (>56); POTASSIUM SERUM 3.6 MEQ/L (3.5-5.1); THYROID STIMULATING HORMONE 35.3 uIU/ML (0.358-3.740)
== END ==
LOC: M SFHCADAM 10:01
PROVIDERS: ATTEND Physician Assistant
DX: R74.8 Abnormal levels of other serum enzymes (principal); E03.9 Hypothyroidism, unspecified

== ENCOUNTER → 2021-09-02 | Outpatient (REF) | payer OTHER ==
[2021-09-02 12:58] LABS: HEMATOCRIT 45.2 % (42.0-52.0); HEMOGLOBIN 15.2 g/dl (13.5-17.5); MEAN CORPUSCULAR HEMOGLOBIN 32.1 pg (27.0-33.0); MEAN CORPUSCULAR HGB CONC 33.6 g/dl (32.0-36.5); MEAN CORPUSCULAR VOLUME 95.4 fl (80.0-96.0); PLATELET COUNT, AUTOMATED 289 10^3/uL (150-450); RED BLOOD COUNT 4.74 10^6/uL (4.30-6.10); WHITE BLOOD COUNT 8.8 10^3/uL (4.0-10.0)
[2021-09-02 13:24] LABS: ALBUMIN 3.9 GM/DL (3.2-5.2); ALT/SGPT 62 U/L (12-78); BILIRUBIN,TOTAL 0.6 MG/DL (0.2-1.0); BLOOD UREA NITROGEN 14 MG/DL (7-18); CALCIUM LEVEL 9.6 MG/DL (8.5-10.1); CARBON DIOXIDE LEVEL 29 MEQ/L (21-32); CHLORIDE LEVEL 105 MEQ/L (98-107); CHOLESTEROL LEVEL 220 MG/DL (<200); CREATININE FOR GFR 1.03 MG/DL (0.70-1.30); FREE T4 1.16 NG/DL (0.76-1.46); GLOMERULAR FILTRATION RATE > 60.0 (>56); GLUCOSE, FASTING 107 MG/DL (70-100); HDL CHOLESTEROL 55 MG/DL (>40); LDL CHOLESTEROL 87 MG/DL (<100); NON-HDL-C 165 MG/DL; POTASSIUM SERUM 4.7 MEQ/L (3.5-5.1); SODIUM LEVEL 139 MEQ/L (136-145); TOTAL PROTEIN 7.7 GM/DL (6.4-8.2); TRIGLYCERIDES LEVEL 389 MG/DL (<150)
== END ==
LOC: M SFHCADAM 08:44
PROVIDERS: ATTEND Physician Assistant
DX: E78.5 Hyperlipidemia, unspecified (principal); F10.10 Alcohol abuse, uncomplicated; E03.9 Hypothyroidism, unspecified

== ENCOUNTER → 2023-09-18 | Outpatient (CLI) | payer OTHER ==
[~2023-09-18] MED LIST changes: +BENA25CA4 PO; +EPIP0.3I2 IM; +PEPC1TAB5 PO; +PRED20TA PO
== END ==
LOC: M OUTALCOH 07:25
PROVIDERS: ATTEND Psychiatry & Neurology Psychiatry
DX: Z03.89 Encounter for observation for other suspected diseases and conditions ruled out (principal)

== ENCOUNTER 2023-09-24 10:58 | Outpatient (RCR) | payer OTHER ==
[~2023-09-24 10:58] MED LIST changes: -BENA25CA4 PO; -EPIP0.3I2 IM; -PEPC1TAB5 PO; -PRED20TA PO
== END 2023-09-27 ==
LOC: M OUTALCOH 10:58
PROVIDERS: ATTEND Psychiatry & Neurology Psychiatry
DX: F10.20 Alcohol dependence, uncomplicated (principal); F12.10 Cannabis abuse, uncomplicated

== ENCOUNTER → 2023-09-25 | Outpatient (REF) | payer OTHER ==
[2023-09-25 12:51] LABS: HEMATOCRIT 46.4 % (42.0-52.0); HEMOGLOBIN 14.6 g/dl (13.5-17.5); MEAN CORPUSCULAR HEMOGLOBIN 29.2 pg (27.0-33.0); MEAN CORPUSCULAR HGB CONC 31.5 g/dl (32.0-36.5); MEAN CORPUSCULAR VOLUME 92.8 fl (80.0-96.0); PLATELET COUNT, AUTOMATED 365 10^3/uL (150-450)
[2023-09-25 13:23] LABS: HEMOGLOBIN A1c 5.5 % (4.0-6.0)
[2023-09-25 13:25] LABS: ALBUMIN 3.7 G/DL (3.2-5.2); ALKALINE PHOSPHATASE 73 U/L (46-116); ALT/SGPT 82 U/L (7.0-40); AST/SGOT 76 U/L (<34); BILIRUBIN,TOTAL 0.6 MG/DL (0.3-1.2); BLOOD UREA NITROGEN 10 MG/DL (9-23); CALCIUM LEVEL 9.8 MG/DL (8.5-10.1); CARBON DIOXIDE LEVEL 32 MMOL/L (20-31); CHLORIDE LEVEL 104 MMOL/L (98-107); CHOLESTEROL LEVEL 114 MG/DL (<200); CHOLESTEROL RISK RATIO 3.29 (<5); CREATININE FOR GFR 0.76 MG/DL (0.70-1.30); FREE T4 2.09 NG/DL (0.89-1.76); GLOMERULAR FILTRATION RATE > 60.0 (>56); GLUCOSE, FASTING 95 MG/DL (60-100); HDL CHOLESTEROL 34.6 MG/DL (>40); LDL CHOLESTEROL 61.4 MG/DL (<100); NON-HDL-C 79.4 MG/DL; POTASSIUM SERUM 4.8 MMOL/L (3.5-5.1); PSA SCREENING 2.98 NG/ML (< 4.00); SODIUM LEVEL 138 MMOL/L (136-145); THYROID STIMULATING HORMONE 0.039 uIU/ML (0.55-4.78); TOTAL PROTEIN 6.7 G/DL (5.7-8.2); TRIGLYCERIDES LEVEL 90 MG/DL (<150)
[2023-09-25 13:26] LABS: CREATININE, URINE 193.9 MG/DL
[2023-09-25 13:28] LABS: MAU/CREAT RATIO 9.2 MCG/MG (0.0-30.0)
== END ==
LOC: M SFHCADAM 11:02
PROVIDERS: ATTEND Physician Assistant
DX: E03.9 Hypothyroidism, unspecified (principal); I10 Essential (primary) hypertension; E78.5 Hyperlipidemia, unspecified; F10.10 Alcohol abuse, uncomplicated; M10.9 Gout, unspecified; R73.01 Impaired fasting glucose; Z12.5 Encounter for screening for malignant neoplasm of prostate

== ENCOUNTER → 2023-09-30 | Outpatient (REF) | payer OTHER ==
[2023-09-30 17:54] LABS: APPEARANCE, URINE CLEAR (CLEAR); BACTERIA, URINE AUTO NEGATIVE (NEGATIVE); BILIRUBIN, URINE AUTO NEGATIVE (NEGATIVE); BLOOD, URINE BLOOD NEGATIVE (NEGATIVE); COLOR, URINE YELLOW (YELLOW); GLUCOSE, URINE (UA) AUTO NEGATIVE (NEGATIVE); KETONE, URINE AUTO NEGATIVE (NEGATIVE); LEUKOCYTE ESTERASE, URINE AUTO NEGATIVE (NEGATIVE); NITRITE, URINE AUTO NEGATIVE (NEGATIVE); PROTEIN, URINE AUTO NEGATIVE (NEGATIVE); RBC, URINE AUTO 0 /HPF (0-3); SPECIFIC GRAVITY URINE AUTO 1.013 (1.002-1.035); SQUAMOUS EPITHELIAL CELL UR AU 0 /HPF (0-6); UROBILINOGEN, URINE AUTO 0.2 mg/dL (0.0-2.0); WBC, URINE AUTO 0 /HPF (0-3)
== END ==
LOC: M SFHCADAM 14:37
PROVIDERS: ATTEND Physician Assistant
DX: R35.1 Nocturia (principal); R39.11 Hesitancy of micturition

== ENCOUNTER 2023-10-08 11:08 | Emergency (ER) | payer OTHER ==
[~2023-10-08] VITALS: Ht 177.8 cm; Wt 112.2 kg
[2023-10-08] MEDS: diphenhydrAMINE 50MG/ML VIAL IV ONE (11:27)
[2023-10-08] MEDS: FAMOTIDINE 20MG/2ML VIAL IVP ONE (11:27)
[2023-10-08] MEDS: methylPREDNISolone 125MG 2ML VIAL IV ONE (11:27)
[2023-10-08] MEDS ORDERED: PRED20TA PO (14:58)
[2023-10-08] MEDS ORDERED: BENA25CA4 PO (14:59)
[2023-10-08] MEDS ORDERED: PEPC1TAB5 PO (15:01)
[2023-10-08] MEDS ORDERED: EPIP0.3I2 IM (15:01)
[2023-10-08 15:51] VITALS: BP 114/58; TEMP 98.5; O2SAT 92
== END 2023-10-08 16:03 | disposition home or self-care (01) ==
LOC: M ED 11:08
DX: T78.04XA Anaphylactic reaction due to fruits and vegetables, initial encounter (principal); I10 Essential (primary) hypertension; J45.909 Unspecified asthma, uncomplicated; E03.9 Hypothyroidism, unspecified; G47.33 Obstructive sleep apnea (adult) (pediatric); F10.10 Alcohol abuse, uncomplicated; Z88.0 Allergy status to penicillin; Z91.018 Allergy to other foods; Z79.52 Long term (current) use of systemic steroids; Z79.02 Long term (current) use of antithrombotics/antiplatelets; Z79.811 Long term (current) use of aromatase inhibitors; Z79.899 Other long term (current) drug therapy
CPT/HCPCS: 93041; 94760; 96374; 99285; J1200; J2919; S0028

== ENCOUNTER → 2023-11-30 | Outpatient (REF) | payer OTHER ==
[~2023-11-30] MED LIST changes: +BENA25CA4 PO; +EPIP0.3I2 IM; +PEPC1TAB5 PO; +PRED20TA PO
[2023-11-30 13:57] LABS: ALBUMIN 3.7 G/DL (3.2-5.2); ALKALINE PHOSPHATASE 88 U/L (46-116); ALT/SGPT 21 U/L (7.0-40); AST/SGOT 17 U/L (<34); BILIRUBIN,TOTAL 0.5 MG/DL (0.3-1.2); BLOOD UREA NITROGEN 15 MG/DL (9-23); CALCIUM LEVEL 9.1 MG/DL (8.5-10.1); CARBON DIOXIDE LEVEL 31 MMOL/L (20-31); CHLORIDE LEVEL 105 MMOL/L (98-107); CREATININE FOR GFR 0.67 MG/DL (0.70-1.30); GLOMERULAR FILTRATION RATE > 60.0 (>56); GLUCOSE, FASTING 103 MG/DL (60-100); POTASSIUM SERUM 5.2 MMOL/L (3.5-5.1); SODIUM LEVEL 139 MMOL/L (136-145); TOTAL PROTEIN 6.6 G/DL (5.7-8.2)
[2023-11-30 13:58] LABS: FREE T4 1.29 NG/DL (0.89-1.76); THYROID STIMULATING HORMONE 0.056 uIU/ML (0.55-4.78)
== END ==
LOC: M SFHCADAM 07:50
PROVIDERS: ATTEND Physician Assistant
DX: K76.0 Fatty (change of) liver, not elsewhere classified (principal); E03.9 Hypothyroidism, unspecified

== ENCOUNTER → 2023-12-02 | Outpatient (CLI) | payer OTHER | LOC: M RAD 09:15 | PROVIDERS: ATTEND Physician Assistant | DX: R74.8 Abnormal levels of other serum enzymes (principal) ==

== ENCOUNTER → 2024-01-07 | Outpatient (REF) | payer OTHER ==
[~2024-01-07] MED LIST changes: +OMEG-28 PO; -OMEG1CAP85 PO
== END ==
LOC: M SFHCPLAZ 14:19
PROVIDERS: ATTEND Student in an Organized Health Care Education/Training Program
DX: T14.8XXA Other injury of unspecified body region, initial encounter (principal)

== ENCOUNTER 2024-02-11 07:25 | Day surgery (SDC) | payer OTHER ==
[~2024-02-11] VITALS: Ht 177.8 cm; Wt 104.3 kg
[2024-02-11] MEDS: NS 1,000 ML IV ONE (08:25)
[2024-02-11] MEDS ORDERED: propofoL 500 MG/50 ML VIAL As Ordered ONE (09:32)
[2024-02-11] MEDS ORDERED: LIDOCAINE 2% 100MG/5ML SDV (FOR ANES.) As Ordered ONE (09:32)
[2024-02-11 09:41] VITALS: TEMP 97.9
[2024-02-11 09:57] VITALS: BP 118/89; O2SAT 92
== END 2024-02-11 10:05 | disposition home or self-care (01) ==
LOC: M OPP 07:25
PROVIDERS: ATTEND Internal Medicine Gastroenterology
DX: K51.40 Inflammatory polyps of colon without complications (principal); K64.8 Other hemorrhoids; K57.30 Diverticulosis of large intestine without perforation or abscess without bleeding; K92.1 Melena; Z86.010 Personal history of colon polyps; I10 Essential (primary) hypertension; J45.909 Unspecified asthma, uncomplicated; E03.9 Hypothyroidism, unspecified; G47.30 Sleep apnea, unspecified; Z99.89 Dependence on other enabling machines and devices; Z87.891 Personal history of nicotine dependence; Z79.02 Long term (current) use of antithrombotics/antiplatelets; Z79.899 Other long term (current) drug therapy; Z79.890 Hormone replacement therapy; Z79.52 Long term (current) use of systemic steroids; Z88.0 Allergy status to penicillin; Z91.018 Allergy to other foods

== ENCOUNTER → 2024-07-20 | Outpatient (REF) | payer OTHER ==
[2024-07-20 18:44] LABS: HEMATOCRIT 48.9 % (42.0-52.0); HEMOGLOBIN 16.2 g/dl (13.5-17.5); MEAN CORPUSCULAR HEMOGLOBIN 30.6 pg (27.0-33.0); MEAN CORPUSCULAR HGB CONC 33.1 g/dl (32.0-36.5); MEAN CORPUSCULAR VOLUME 92.3 fl (80.0-96.0); PLATELET COUNT, AUTOMATED 338 10^3/uL (150-450); WHITE BLOOD COUNT 8.2 10^3/uL (4.0-10.0)
[2024-07-20 18:48] LABS: ALBUMIN 4.4 G/DL (3.2-5.2); ALKALINE PHOSPHATASE 67 U/L (40-129); ALT/SGPT 16 U/L (7.0-40); AST/SGOT 22 U/L (<34); BILIRUBIN,TOTAL 1.4 MG/DL (0.3-1.2); BLOOD UREA NITROGEN 13 MG/DL (9-23); CALCIUM LEVEL 9.5 MG/DL (8.5-10.1); CARBON DIOXIDE LEVEL 32 MMOL/L (20-31); CHLORIDE LEVEL 105 MMOL/L (98-107); CREATININE FOR GFR 0.87 MG/DL (0.70-1.30); GLOMERULAR FILTRATION RATE > 60.0 (>56); GLUCOSE, FASTING 88 MG/DL (60-100); POTASSIUM SERUM 4.5 MMOL/L (3.5-5.1); SODIUM LEVEL 142 MMOL/L (136-145); TOTAL PROTEIN 7.7 G/DL (5.7-8.2)
[2024-07-20 19:08] LABS: HEMOGLOBIN A1c 5.2 % (4.0-6.0)
== END ==
LOC: M SFHCADAM 13:25
PROVIDERS: ATTEND Physician Assistant
DX: I10 Essential (primary) hypertension (principal); E78.5 Hyperlipidemia, unspecified; F10.10 Alcohol abuse, uncomplicated

== ENCOUNTER → 2025-01-24 | Outpatient (REF) | payer OTHER ==
[2025-01-24 14:46] LABS: ALT/SGPT 22 U/L (7.0-40); AST/SGOT 22 U/L (<34); CALCIUM LEVEL 8.6 MG/DL (8.5-10.1); CARBON DIOXIDE LEVEL 30 MMOL/L (20-31); CHLORIDE LEVEL 100 MMOL/L (98-107); CHOLESTEROL LEVEL 241 MG/DL (<200); CHOLESTEROL RISK RATIO 4.11 (<5); CREATININE FOR GFR 0.86 MG/DL (0.70-1.30); FREE T4 1.35 NG/DL (0.89-1.76); GLOMERULAR FILTRATION RATE > 90.0 (>56); LDL CHOLESTEROL 117.1 MG/DL (<100); NON-HDL-C 182.5 MG/DL; POTASSIUM SERUM 4.2 MMOL/L (3.5-5.1); PSA SCREENING 5.04 NG/ML (< 4.00); SODIUM LEVEL 142 MMOL/L (136-145); TRIGLYCERIDES LEVEL 327 MG/DL (<150)
== END ==
LOC: M SFHCADAM 09:14
PROVIDERS: ATTEND Physician Assistant
DX: Z12.5 Encounter for screening for malignant neoplasm of prostate (principal); R35.0 Frequency of micturition; E03.9 Hypothyroidism, unspecified; I10 Essential (primary) hypertension; E78.5 Hyperlipidemia, unspecified

== ENCOUNTER → 2025-06-06 | Outpatient (REF) | payer OTHER ==
[2025-06-09 11:48] LABS: PSA % FREE 13.0 % (calc) (>25); PSA FREE 0.8 ng/mL; PSA TOTAL 6.4 ng/mL (< OR = 4.0)
== END ==
LOC: M SFHCADAM 11:59
PROVIDERS: ATTEND Physician Assistant
DX: R97.20 Elevated prostate specific antigen [PSA] (principal)

== ENCOUNTER 2025-06-12 09:00 | Inpatient (IN) | payer OTHER ==
[~2025-06-12] VITALS: Ht 177.8 cm; Wt 104.6 kg
[2025-06-12] VITALS (13 sets, daily range): BP systolic 117–134; BP diastolic 78–92; TEMP 97.3–98; O2SAT 91–98
[2025-06-12] MEDS: IPRATROPIUM 0.5 MG/ALBUTEROL 2.5 MG INH SOL UD 3 ML NEB ONE (09:19)
[2025-06-12] MEDS: ALBUTEROL SULFATE 2.5 MG/0.5 ML INH CONCENTRATE NEB SOLN INH ONE (09:19)
[2025-06-12 09:24] LABS: ABG BASE EXCESS 0.9 (-2.0-2.0); ABG HCO3 26.2 MMOL/L (22.0-26.0); ABG O2 SATURATION 90.9 % (95.0-99.0); ABG PARTIAL PRESSURE CO2 43.7 mmHg (35.0-45.0); ABG PARTIAL PRESSURE O2 60.2 mmHg (75.0-100.0); ABG STANDARD HCO3 25.1 MMOL/L. (22.0-26.0); ABG TOTAL CO2 27.5 MMOL/L (22.0-29.0); ABG pH (ARTERIAL) 7.395 UNITS (7.350-7.450)
[2025-06-12 09:30] LABS: BASO # 0.1 10^3/uL (0.0-0.2); BASO % 0.8 % (0.0-1.0); EOS # 0.4 10^3/uL (0.0-0.5); EOS % 3.7 % (0.0-3.0); LYMPH # 1.4 10^3/uL (1.5-5.0); LYMPH % 14.7 % (24.0-44.0); MONO # 0.6 10^3/uL (0.0-0.8); MONO % 6.1 % (2.0-8.0); NEUTROPHILS # 7.2 10^3/uL (1.5-8.5); NEUTROPHILS % 74.3 % (36.0-66.0); PLATELET COUNT, AUTOMATED 266 10^3/uL (150-450)
[2025-06-12 10:18] LABS: CPK CREATINE PHOSPHOKINASE 141 U/L (46-171)
[2025-06-12] MEDS ORDERED: ISOVUE-370 76% 100 ML VIAL As Ordered ONE (10:18)
[2025-06-12 10:19] LABS: ALT/SGPT 61 U/L (7.0-40); AST/SGOT 41 U/L (<34); CALCIUM LEVEL 8.8 MG/DL (8.5-10.1); CARBON DIOXIDE LEVEL 28 MMOL/L (20-31); CHLORIDE LEVEL 103 MMOL/L (98-107); CK-MB VALUE MASS 4.5 NG/ML (<3.6); CREATININE FOR GFR 0.87 MG/DL (0.70-1.30); GLOMERULAR FILTRATION RATE > 90.0 (>56); MB/CK RELATIVE INDEX 3.19 (< OR =4); POTASSIUM SERUM 3.9 MMOL/L (3.5-5.1); SODIUM LEVEL 141 MMOL/L (136-145)
[2025-06-12 10:23] LABS: THYROXINE (T4) 6.9 UG/DL (4.5-10.9)
[2025-06-12 10:57] LABS: CK-MB VALUE MASS 5.0 NG/ML (<3.6)
[2025-06-12 10:59] LABS: CPK CREATINE PHOSPHOKINASE 140.0 U/L (46-171); MB/CK RELATIVE INDEX 3.57 (< OR =4)
[2025-06-12] MEDS: LevoFLOXacin IV 750 MG in IV 1 EA IV ONE (10:59)
[2025-06-12] MEDS: NS 500 ML IV ONE (10:59)
[2025-06-12 11:14] LABS: KETONE, URINE AUTO RFX NEGATIVE (NEGATIVE); LEUKOCYTE ESTERASE UR AUTO RFX NEGATIVE (NEGATIVE); NITRITE, URINE AUTO RFX NEGATIVE (NEGATIVE); RBC, URINE AUTO RFX 0 /HPF (0-3); SQUAM EPITHELIAL CELL UR AURFX 0 /HPF (0-6); WBC, URINE AUTO RFX 0 /HPF (0-3)
[2025-06-12] MEDS ORDERED: THERTAB52 PO (11:47)
[2025-06-12] MEDS ORDERED: TAMS1CAP17 PO (11:47)
[2025-06-12] MEDS ORDERED: EPIN0.3I11 IM (11:47)
[2025-06-12] MEDS ORDERED: FAMO20TA PO (11:47)
[2025-06-12] MEDS ORDERED: HOME MED LIST COMPLETE! XX SCH (11:50)
[2025-06-12 12:00] LABS: CK-MB VALUE MASS 4.4 NG/ML (<3.6)
[2025-06-12 12:02] LABS: CPK CREATINE PHOSPHOKINASE 132.0 U/L (46-171); MB/CK RELATIVE INDEX 3.33 (< OR =4)
[2025-06-12] MEDS: FUROSEMIDE 20 MG/2 ML VIAL IV ONE (12:48)
[2025-06-12] MEDS ORDERED: MOM 30 ML SUSPENSION UDC PO PRN (15:05)
[2025-06-12] MEDS ORDERED: ACETAMINOPHEN 325 MG TAB PO PRN (15:05)
[2025-06-12] MEDS ORDERED: MAALOX 30 ML SUSP *UDC PO PRN (15:05)
[2025-06-12] MEDS: MULTIVITAMINS/MINERALS THERAP 1 TAB PO SCH (15:27)
[2025-06-12] MEDS: FOLIC ACID 1 MG TAB PO SCH (15:27)
[2025-06-12] MEDS: THIAMINE 100 MG TAB PO SCH (15:27)
[2025-06-12 16:45] LABS: ESTIMATED AVERAGE GLUCOSE 103.0 MG/DL (60-110)
[2025-06-12] MEDS: FUROSEMIDE 40 MG/4 ML VIAL IV SCH (17:18)
[2025-06-12] MEDS: ALBUTEROL 90 MCG/ACT 8 GM HFA INHALER INH PRN (21:04)
[2025-06-12] MEDS: TAMSULOSIN 0.4 MG CAP PO SCH (21:28)
[2025-06-12] MEDS: FAMOTIDINE 20 MG TAB PO SCH (21:28)
[2025-06-13] VITALS (35 sets, daily range): BP systolic 101–132; BP diastolic 71–83; TEMP 97.3–97.8; O2SAT 83–98
[2025-06-13] MEDS ORDERED: FUROSEMIDE 40 MG/4 ML VIAL IV SCH (01:00)
[2025-06-13] MEDS: LEVOTHYROXINE 150 MCG TABLET (0.15 MG) PO SCH (06:16)
[2025-06-13 07:07] LABS: PLATELET COUNT, AUTOMATED 267 10^3/uL (150-450)
[2025-06-13 07:46] LABS: ALT/SGPT 48 U/L (7.0-40); AST/SGOT 30 U/L (<34); CALCIUM LEVEL 8.7 MG/DL (8.5-10.1); CARBON DIOXIDE LEVEL 32 MMOL/L (20-31); CHLORIDE LEVEL 102 MMOL/L (98-107); CREATININE FOR GFR 0.88 MG/DL (0.70-1.30); GLOMERULAR FILTRATION RATE > 90.0 (>56); MAGNESIUM LEVEL 2.2 MG/DL (1.8-2.4); PHOSPHORUS LEVEL 4.8 MG/DL (2.5-4.9); POTASSIUM SERUM 4.7 MMOL/L (3.5-5.1); SODIUM LEVEL 140 MMOL/L (136-145)
[2025-06-13] MEDS: LOSARTAN 25 MG TAB PO SCH (08:43)
[2025-06-13] MEDS: ATORVASTATIN 20 MG TAB PO SCH (08:44)
[2025-06-13] MEDS: amLODIPine 5 MG TAB PO SCH (08:44)
[2025-06-13] MEDS: ENOXAPARIN 40 MG/0.4 ML SYRINGE (J1650 PER 10MG) SC SCH (08:45)
[2025-06-14] VITALS (33 sets, daily range): BP systolic 103–122; BP diastolic 66–90; TEMP 97–98.3; O2SAT 86–96
[2025-06-14 05:59] LABS: PLATELET COUNT, AUTOMATED 214 10^3/uL (150-450)
[2025-06-14 06:21] LABS: CALCIUM LEVEL 8.1 MG/DL (8.5-10.1); CARBON DIOXIDE LEVEL 30.0 MMOL/L (20-31); CHLORIDE LEVEL 105.0 MMOL/L (98-107); CREATININE FOR GFR 1.0 MG/DL (0.70-1.30); GLOMERULAR FILTRATION RATE 89.4 (>56); MAGNESIUM LEVEL 2.1 MG/DL (1.8-2.4); PHOSPHORUS LEVEL 4.0 MG/DL (2.5-4.9); POTASSIUM SERUM 4.1 MMOL/L (3.5-5.1); SODIUM LEVEL 144.0 MMOL/L (136-145)
[2025-06-14] MEDS ORDERED: FLUZONE VACCINE TRI PF(25-26) 0.5ML SYRINGE IM.IMMUN ONE (09:00)
[2025-06-14] MEDS ORDERED: PNEUMOC 21-VAL CONJ-DIP CRM/PF 0.5 ML SYRINGE IM.IMMUN ONE (09:00)
[2025-06-14] MEDS: MOM 30 ML SUSPENSION UDC PO SCH (16:33)
[2025-06-14] MEDS: SENNA 8.6 MG TAB PO SCH (16:34)
[2025-06-15] VITALS (14 sets, daily range): BP systolic 108–129; BP diastolic 71–90; TEMP 98–98.7; O2SAT 91–96
[2025-06-15 06:58] LABS: PLATELET COUNT, AUTOMATED 307 10^3/uL (150-450)
[2025-06-15 07:12] LABS: CALCIUM LEVEL 8.9 MG/DL (8.5-10.1); CARBON DIOXIDE LEVEL 39.0 MMOL/L (20-31); CHLORIDE LEVEL 98.0 MMOL/L (98-107); CREATININE FOR GFR 1.05 MG/DL (0.70-1.30); GLOMERULAR FILTRATION RATE 84.4 (>56); MAGNESIUM LEVEL 2.4 MG/DL (1.8-2.4); PHOSPHORUS LEVEL 4.4 MG/DL (2.5-4.9); POTASSIUM SERUM 4.7 MMOL/L (3.5-5.1); SODIUM LEVEL 144.0 MMOL/L (136-145)
[2025-06-15] MEDS: PNEUMOC 21-VAL CONJ-DIP CRM/PF 0.5 ML SYRINGE IM.IMMUN ONE (08:58)
[2025-06-15] MEDS: FLUZONE VACCINE TRI PF(25-26) 0.5ML SYRINGE IM.IMMUN ONE (08:59)
[2025-06-15] MEDS ORDERED: FURO20TA2 PO (15:11)
[2025-06-16 02:01] VITALS: O2SAT 91
[2025-06-16 03:47] VITALS: BP 121/80; TEMP 97.9; O2SAT 93
[2025-06-16 04:45] VITALS: O2SAT 93
[2025-06-16 06:26] VITALS: O2SAT 91
[2025-06-16 06:31] LABS: PLATELET COUNT, AUTOMATED 281 10^3/uL (150-450)
[2025-06-16 07:03] LABS: CALCIUM LEVEL 8.8 MG/DL (8.5-10.1); CARBON DIOXIDE LEVEL 33 MMOL/L (20-31); CHLORIDE LEVEL 101 MMOL/L (98-107); CREATININE FOR GFR 0.89 MG/DL (0.70-1.30); GLOMERULAR FILTRATION RATE > 90.0 (>56); MAGNESIUM LEVEL 2.6 MG/DL (1.8-2.4); PHOSPHORUS LEVEL 4.2 MG/DL (2.5-4.9); POTASSIUM SERUM 4.0 MMOL/L (3.5-5.1); SODIUM LEVEL 143 MMOL/L (136-145)
[2025-06-16 08:00] VITALS: BP 118/74; TEMP 98.3; O2SAT 95
== END 2025-06-16 12:27 | disposition home or self-care (01) | DRG 194 ==
LOC: M ED 09:00 → M ED INP 13:50 → M PCU 15:00 → M MSPAV 06-14 17:47
PROVIDERS: ADMIT Internal Medicine; ATTEND Student in an Organized Health Care Education/Training Program
DX: I11.0 Hypertensive heart disease with heart failure (principal); I21.A1 Myocardial infarction type 2; J96.01 Acute respiratory failure with hypoxia; E03.9 Hypothyroidism, unspecified; E78.5 Hyperlipidemia, unspecified; I42.6 Alcoholic cardiomyopathy; J45.909 Unspecified asthma, uncomplicated; K21.9 Gastro-esophageal reflux disease without esophagitis; I50.31 Acute diastolic (congestive) heart failure; N40.0 Benign prostatic hyperplasia without lower urinary tract symptoms; R17 Unspecified jaundice; M10.9 Gout, unspecified; G47.33 Obstructive sleep apnea (adult) (pediatric); Z96.641 Presence of right artificial hip joint; Z91.018 Allergy to other foods; Z88.0 Allergy status to penicillin; Z79.899 Other long term (current) drug therapy; Z79.890 Hormone replacement therapy